=== PATIENT | male | born 1940 | race Caucasian/White ===

== ENCOUNTER → 2017-08-04 | Outpatient (CLI) | payer MEDICARE ==
[~2017-08-04] MED LIST: AMLO10TA2 PO; BYST10TA2 PO; FINA5TAB2 PO; PERC5TAB12 PO; SOMA250T PO; TAMS5CAP PO
[2017-08-04 11:30] LABS: HEMOGLOBIN 15.7 GM/DL (13.0-17.0); MEAN CELL VOLUME 96.8 FL (80.0-100.0); MEAN CORPUSCULAR HEMOGLOBIN 33.1 PG (27.0-34.0); MEAN CORPUSCULAR HGB CONC 34.1 % (32.0-36.0); MEAN PLATELET VOLUME 7.9 FL (7.0-11.0); PLATELET COUNT 242 TH/MM3 (150-450); RED BLOOD COUNT 4.75 MIL/MM3 (4.50-5.90); RED CELL DISTRIBUTION WIDTH 13.3 % (11.6-17.2); WHITE BLOOD COUNT 8.7 TH/MM3 (4.0-11.0)
[2017-08-04 11:38] LABS: PROTHROMBIN TIME - PATIENT 10.5 SEC (9.8-11.6)
[2017-08-04 11:50] LABS: BICARBONATE 29.3 MEQ/L (21.0-32.0); CALCIUM 9.1 MG/DL (8.5-10.1); CREATININE 1.05 MG/DL (0.60-1.30)
--- NOTE | 2017-08-04 11:56 | RADRPT ---
EXAM DATE: 08/04/2017 11:48 AM EDT AGE/SEX: 76 years / Male INDICATIONS: Evaluate for pneumonia, pneumothorax or communicable disease. Pre op AAA repair. CLINICAL DATA: This is the patient's initial encounter. Patient reports that signs and symptoms have been present for 1 day and indicates a pain score of 0/10. MEDICAL/SURGICAL HISTORY: . Smoker None. COMPARISON: No prior exams available for comparison. FINDINGS: PA and lateral views of the chest demonstrate the lungs to be symmetrically aerated without evidence of mass, infiltrate or effusion. There is hyperaeration bilaterally. The cardiomediastinal contours a re unremarkable. Osseous structures are intact. Multiple old healed right-sided rib fractures. No significant changes compared to the prior study. CONCLUSION: No acute intrathoracic disease. Stable examination. Electronically signed by: Cole Tellez MD 08/04/2017 11:54 AM EDT
--- NOTE | 2017-08-05 14:07 | EKG ---
Date Performed: 08/04/2017 Time Performed: 11:12:48 PTAGE: 76 years EKG: Sinus rhythm WITH FIRST DEGREE AV BLOCK RIGHT BUNDLE BRANCH BLOCK ABNORMAL ECG NO PREVIOUS TRACING DOCTOR: Denis Jacobo Interpretating Date/Time 08/05/2017 14:06:58
== END ==
LOC: CPRE 10:51
PROVIDERS: ATTEND Surgery
DX: Z01.812 Encounter for preprocedural laboratory examination (principal); Z01.810 Encounter for preprocedural cardiovascular examination; Z01.811 Encounter for preprocedural respiratory examination; I71.4 Abdominal aortic aneurysm, without rupture
CPT/HCPCS: 36415; 71046; 80048; 85027; 85610; 86850; 86900; 86901; 93005

== ENCOUNTER 2017-08-06 08:03 | Inpatient (IN) | payer MEDICARE ==
[~2017-08-06] VITALS: Ht 182.9 cm; Wt 84.5 kg
[2017-08-06] VITALS (16 sets, daily range): BP systolic 135–164; BP diastolic 63–77; PULSE 55–77; RESP 18–20; TEMP 97.8–98.4; O2SAT 92–99
[~2017-08-06 08:03] MED LIST changes: -AMLO10TA2 PO; -FINA5TAB2 PO; -PERC5TAB12 PO; -SOMA250T PO; -TAMS5CAP PO
[2017-08-06] MEDS ORDERED: CHLORHEXIDINE GLUCONATE 2 % 1 PACK (2 CLOTHS) TOPICAL PRN (08:45)
[2017-08-06] MEDS ORDERED: LACTATED RINGER'S 1000 ML IV PRN (08:45)
[2017-08-06] MEDS ORDERED: POVIDONE IODINE 5% (ANTISEPSIS KIT) 4 APPLICATIONS EACH NARE PRN (08:45)
[2017-08-06] MEDS ORDERED: SODIUM CHLORID 0.9% 500 ML IV PRN (08:45)
[2017-08-06] MEDS ORDERED: METOPROLOL TARTRATE 25 MG TAB PO PRN (08:45)
[2017-08-06] MEDS ORDERED: AMLO10TA2 PO (08:53)
[2017-08-06] MEDS ORDERED: SOMA250T PO (08:53)
[2017-08-06] MEDS ORDERED: TAMS5CAP PO (08:53)
[2017-08-06] MEDS ORDERED: FINA5TAB2 PO (08:53)
[2017-08-06] MEDS ORDERED: LIDOCAINE HCL 1% PF 5 ML SYRINGE OTHER ONE (10:19)
[2017-08-06] MEDS ORDERED: IOHEXOL 350 MG/ML 100 ML BTL (for RAD DIAG) IVCONTRAST ONE (10:19)
[2017-08-06] MEDS ORDERED: NEOSTIGMINE 5 MG/5 ML SYRINGE IV PUSH ONE (10:19)
[2017-08-06] MEDS ORDERED: ROCURONIUM INJ 50 MG/5 ML SYRINGE IV PUSH ONE (10:19)
[2017-08-06] MEDS ORDERED: GLYCOPYRROLATE 1 MG/5 ML SYRINGE IV PUSH ONE (10:19)
[2017-08-06] MEDS ORDERED: ONDANSETRON HCL 4 MG/2 ML VIAL IV PUSH ONE (10:19)
[2017-08-06] MEDS ORDERED: NORMOSOL R INJ 1,000 ML IV ONE (10:19)
[2017-08-06] MEDS ORDERED: DEXAMETHASONE SOD PHOS 4 MG/ML VIAL IV ONE (10:19)
[2017-08-06] MEDS ORDERED: PHENYLEPH/NS 1000 MCG/10 ML SYR IV ONE (10:19)
[2017-08-06] MEDS ORDERED: ePHEDrine/NS 25 MG/5 ML SYRINGE IV ONE (10:19)
[2017-08-06] MEDS ORDERED: SODIUM CHLORIDE 0.9% 20 ML VIAL IV ONE (10:19)
[2017-08-06] MEDS ORDERED: SODIUM CHLORID 0.9% 500 ML INJ 500 ML IV ONE (10:19)
[2017-08-06] MEDS ORDERED: PROPOFOL 200 MG/20 ML AMP IV ONE (10:19)
--- NOTE | 2017-08-06 10:32 | HHI.HP ---
History of Present Illness Chief Complaint: AAA History of Present Illness 76 yo male with AAA, asymptomatic Past/Family/Social History Past Medical History AAA HTN BPH constipation Past Surgical History appy Social History works on motorcycles Family History [place] Home Medications Reported Medications Carisoprodol (Soma) 250 Mg Tab, 250 MG PO QID Y for PAIN, TAB 0 Refills 08/06/17 Tamsulosin (Flomax) 0.4 Mg Cap, 0.4 MG PO HS for Manage Prostate Problems, #30 CAP 0 Refills 08/06/17 Finasteride (Finasteride) 5 Mg Tab, 5 MG PO DAILY for Manage Prostate Problems, #30 TAB 0 Refills Do not crush. 08/06/17 Amlodipine (Amlodipine) 10 Mg Tab, 10 MG PO DAILY for Blood Pressure Management , #30 TAB 0 Refills 08/06/17 Nebivolol (Bystolic) 10 Mg Tab, 10 MG PO DAILY for Blood Pressure Management, # 30 TAB 0 Refills 08/04/17 Coded Allergies: Sulfa (Sulfonamide Antibiotics) (Verified Allergy, Severe, Rash, 08/06/17) Review of Systems Constitutional: DENIES: Diaphoretic episodes, Fatigue, Fever, Weight gain, Weight loss, Chills, Dizziness, Change in appetite, Night Sweats Cardiovascular: DENIES: Chest pain, Palpitations, Syncope, Dyspnea on Exertion , PND, Lower Extremity Edema, Orthopnea, Claudication Physical Exam Vitals/I&O Date Time Temp Pulse Resp B/P (MAP) Pulse Ox O2 Delivery O2 Flow Rate FiO2 08/06/17 08:45 98.4 67 20 161/73 (102) 96 Neuro: alert, oriented, no distress HEENT: anicteric sclera Neck: no JVD Heart: reg rate, no M Lungs: clear B Vascular: palpable pedal pulses Hct 46 plt 242 INR 1.0 cr 1.0 CTA Reviewed Caprini VTE Risk Assessment Caprini VTE Risk Assessment: No/Low Risk (score <= 1) Caprini Risk Assessment Model Point Value = 1 Point Value = 2 Point Value = 3 Point Value = 5 Age 41-60 Minor surgery BMI > 25 kg/m2 Swollen legs Varicose veins or History of unexplained or recurrent spontaneous Oral contraceptives or hormone replacement Sepsis (< 1 month) Serious lung disease, including pneumonia (< 1 month) Abnormal pulmonary function Acute myocardial infarction Congestive heart failure (< 1 month) History of inflammatory bowel disease Medical patient at bed rest Age 61-74 Arthroscopic surgery Major open surgery (> 45 min) Laparoscopic surgery (> 45 min) Malignancy Confined to bed (> 72 hours) Immobilizing plaster cast Central venous access Age >= 75 History of VTE Family history of VTE Factor V Leiden Prothrombin [id number] Lupus anticoagulant Anticardiolipin antibodies Elevated serum homocysteine Heparin-induced thrombocytopenia Other congenital or acquired thrombophilia Stroke (< 1 month) Elective arthroplasty Hip, pelvis, or leg fracture Acute spinal cord injury (< 1 month) Prophylaxis Regimen Total Risk Factor Score Risk Level Prophylaxis Regimen 0-1 Low Early ambulation 2 Moderate Order ONE of the following: *Sequential Compression Device (SCD) *Heparin 5000 units SQ BID 3-4 Higher Order ONE of the following medications: *Heparin 5000 units SQ TID *Enoxaparin/Lovenox 40 mg SQ daily (WT < 150 kg, CrCl > 30 mL/min) *Enoxaparin/Lovenox 30 mg SQ daily (WT < 150 kg, CrCl > 10-29 mL/min) *Enoxaparin/Lovenox 30 mg SQ BID (WT < 150 kg, CrCl > 30 mL/min) AND/OR *Sequential Compression Device (SCD) 5 or more Highest Order ONE of the following medications: *Heparin 5000 units SQ TID (Preferred with Epidurals) *Enoxaparin/Lovenox 40 mg SQ daily (WT < 150 kg, CrCl > 30 mL/min) *Enoxaparin/Lovenox 30 mg SQ daily (WT < 150 kg, CrCl > 10-29 mL/min) *Enoxaparin/Lovenox 30 mg SQ BID (WT < 150 kg, CrCl > 30 mL/min) AND *Sequential Compression Device (SCD) Assessment and Plan Plan EVAR today Discharge Planning likely home tomorrow (POD#1) "Mahi" [phone] Leodan Hodges MD Aug 06, 2017 10:32
[2017-08-06] MEDS ORDERED: PROTAMINE SULFATE 50 MG/5 ML VIAL ONE ×2 (10:51→12:40)
[2017-08-06] MEDS ORDERED: HEPARIN SODIUM - IV 10,000 UNITS/10 ML VIAL ONE (10:52)
[2017-08-06] MEDS ORDERED: ceFAZolin 2 GM PREMIX 50 ML ONE (10:52)
[2017-08-06] MEDS ORDERED: HEPARIN-NS/PF INJ 500 ML ONE ×2 (11:04→12:31)
[2017-08-06] MEDS ORDERED: IOHEXOL 300 INJ 50 ML IV ONE (11:50)
[2017-08-06] MEDS ORDERED: BISACODYL 10 MG SUPP RECTAL PRN (13:00)
[2017-08-06] MEDS ORDERED: LACTULOSE SYRUP 20 GM/30 ML CUP PO PRN (13:00)
[2017-08-06] MEDS ORDERED: HYDROmorphone HCL 2 MG TAB PO PRN (13:00)
[2017-08-06] MEDS ORDERED: SENNOSIDES 8.6 MG TAB PO PRN (13:00)
[2017-08-06] MEDS ORDERED: MAGNESIUM HYDROXIDE SUSP 30 ML CUP PO PRN (13:00)
[2017-08-06] MEDS ORDERED: DO NOT ADM ANY ANTICOAGULANT DRUGS PRN (13:09)
[2017-08-06] MEDS ORDERED: MIDAZOLAM HCL 2 MG/2 ML VIAL ONE (13:15)
[2017-08-06] MEDS ORDERED: NICOTINE 14 MG/24 HR PATCH TOPICAL SCH (18:00)
[2017-08-06] MEDS ORDERED: REMOVE OLD NICOTINE PATCH T-DERMAL SCH (18:00)
[2017-08-06] MEDS ORDERED: diphenhydrAMINE HCL 25 MG CAP PO PRN (20:30)
[2017-08-06] MEDS: FAMOTIDINE 20 MG TAB PO SCH (20:51)
[2017-08-06] MEDS: DOCUSATE SODIUM 50 MG/SENNA 8.6 MG TAB PO SCH (20:53)
[2017-08-06] MEDS ORDERED: ATORVASTATIN 40 MG TAB PO SCH (21:00)
[2017-08-06] MEDS ORDERED: TAMSULOSIN HCL 0.4 MG CAP PO SCH (21:00)
[2017-08-07] VITALS (11 sets, daily range): BP systolic 146–165; BP diastolic 67–74; PULSE 68–82; RESP 18–19; TEMP 98.1–98.4; O2SAT 88–92
[2017-08-07 04:40] LABS: HEMATOCRIT 41.1 % (39.0-51.0); MEAN CELL VOLUME 96.4 FL (80.0-100.0); MEAN CORPUSCULAR HEMOGLOBIN 32.8 PG (27.0-34.0); MEAN PLATELET VOLUME 7.9 FL (7.0-11.0); PLATELET COUNT 192 TH/MM3 (150-450); RED BLOOD COUNT 4.26 MIL/MM3 (4.50-5.90); RED CELL DISTRIBUTION WIDTH 13.4 % (11.6-17.2); WHITE BLOOD COUNT 16.5 TH/MM3 (4.0-11.0)
[2017-08-07 05:14] LABS: BICARBONATE 26.6 MEQ/L (21.0-32.0); CALCIUM 8.2 MG/DL (8.5-10.1); CREATININE 0.92 MG/DL (0.60-1.30)
--- NOTE | 2017-08-07 06:27 | MP ---
cc: Leodan Hodges MD DATE OF OPERATION: 08/06/2017 PREOPERATIVE DIAGNOSIS: Abdominal aortic aneurysm. POSTOPERATIVE DIAGNOSIS: Abdominal aortic aneurysm. PROCEDURE: 1. Endovascular exclusion of abdominal aortic aneurysm using a bifurcated device. 2. Right common femoral artery Perclose for a 22 Norwegian sheath. 3. Left common femoral artery Perclose for a 16-Norwegian sheath. 4. Left external iliac artery angioplasty with a 8 mm balloon. SURGEON: Leodan Hodges MD CHANGE ATTENDANT SURGEON: None. ANESTHESIA: General. INDICATIONS FOR PROCEDURE: Mr. Hernandez is a 76-year-old gentleman with an abdominal aortic aneurysm 5.5 cm. He was taken to the operating room for elective repair. DESCRIPTION OF PROCEDURE: Informed consent was obtained from the patient. He was taken to the operating room and placed supine on the operating table. Appropriate timeout was taken to ensure the patient's identify, operative site and planned procedure. 2 g of Ancef was initiated prior to the skin incision and will be discontinued after a single preoperative dose. Everyone in the room agreed with timeout and we proceeded. He was prepped from his nipples to his knees. A 21-gauge micropuncture needle was used to access both common femoral arteries. This was exchanged using Seldinger for the micropuncture sheaths through a 0.035 STORQ wire was introduced and the micropuncture sheath was exchanged for a 5-Norwegian sheath, which was used to dilate the skin, subcutaneous tract and arteriotomy. Two Perclose ProGlide sutures were inserted in both groins and tagged but not tied down. These will be used later. On the right hand side, an 8-Norwegian 10 cm sheath was introduced. On the left hand side, an 8-Norwegian 25 cm sheath was introduced. The patient was systemically heparinized and throughout the remainder of the case ACT was kept greater than 250. Through the right hand side, the STORQ wire was advanced to the proximal descending thoracic aorta and exchanged for a Lunderquist wire. Over the left hand side, a marked straight flush catheter was introduced. The 8-Norwegian sheath in the right was removed. A Percy dilator was used to dilate skin and subcutaneous tract and arteriotomy and the main device, which was a Cook Zenith 32 x 96, was introduced and oriented appropriately. This went through a 22-Norwegian sheath. Interval angiogram was performed which was located at the renal arteries and device was deployed down to the contralateral gate. Angiography was performed to ascertain exactly to depict the exact location of the renal arteries and the top cap was deployed without difficulty. A Roadrunner wire was placed to the left hand side and the marker straight catheter was exchanged for a Cobra catheter. This was used to navigate into the contralateral gate and angiograms confirmed we were indeed in the contralateral gate. The Lunderquist wire was inserted and a marker Flush catheter was then placed and an angiogram was performed, which was located at the left hypogastric artery. The 8-Norwegian sheath on the left was removed, Percy dilator was used to dilate the skin and subcutaneous tract and arteriotomy in the left groin, which was inserted through a 16-Norwegian sheath was introduced and deployed without difficulty to the distal aspect of the limb was proximal to the left hypogastric artery. The remainder of the main device was deployed and the top cap was recaptured. The delivery system on the right side was removed and a marker flush catheter was then introduced and an angiogram was performed, which located the right hypogastric artery and the ipsilateral limb was then inserted and deployed through the main 22-Norwegian sheath. A Coda balloon was used to balloon the proximal and distal ends of the graft, as well as all junctions and a completion angiogram was obtained. This showed there was a slight narrowing of the external iliac artery on the left and as such an 8 x 40 balloon was used to angioplasty the proximal left external iliac artery and the completion angiogram showed excellent result without recoil extravasation. The wire, catheter and sheath were removed and the Perclose were tied down. Hemostasis was achieved in the groins and there were Doppler signals in the feet. The heparin reversed with protamine. The patient was then extubated and transported to recovery room in stable condition. MD SHAHRIAR Reed/MICHAEL , 05:08 AM , 06:25 AM
--- NOTE | 2017-08-07 07:42 | PD.VS.PN ---
Subjective POD #: 1 Procedure(s): EVAR and L EIA NEWCOMER HOSTESS Subjective/Hospital Course Looks great, told po pain controlled has already ambulated Objective Vitals/I&O Date Time Temp Pulse Resp B/P (MAP) Pulse Ox O2 Delivery O2 Flow Rate FiO2 08/07/17 06:41 80 08/07/17 05:40 78 08/07/17 04:42 75 08/07/17 03:50 98.4 75 19 146/67 (93) 88 08/07/17 03:35 72 08/07/17 02:16 72 08/07/17 01:22 74 08/07/17 00:00 68 08/06/17 23:50 98.2 77 19 135/77 (96) 98 08/06/17 23:00 69 08/06/17 22:00 70 08/06/17 21:00 66 08/06/17 20:00 66 08/06/17 19:40 92 08/06/17 19:40 98.4 70 20 138/64 (88) 92 08/06/17 19:00 66 08/06/17 18:07 65 08/06/17 15:45 60 20 142/63 (89) 92 08/06/17 15:30 144/65 (91) 08/06/17 15:30 59 20 144/ 92 08/06/17 15:15 61 20 146/64 (91) 93 08/06/17 15:00 58 08/06/17 15:00 57 20 150/67 (94) 94 08/06/17 14:45 59 18 164/67 (99) 93 08/06/17 14:30 59 18 157/72 (100) 94 08/06/17 14:15 55 20 149/67 (94) 99 08/06/17 14:00 95 Nasal Cannula 2.00 08/06/17 14:00 97.8 59 18 154/70 (98) 95 08/06/17 13:50 63 14 137/65 (89) 97 Nasal Cannula 2 08/06/17 13:30 63 14 134/61 (85) 97 Nasal Cannula 2 08/06/17 13:15 65 14 129/61 (83) 96 Nasal Cannula 2 08/06/17 13:07 97.5 65 14 130/61 (84) 96 Nasal Cannula 2 08/06/17 08:45 98.4 67 20 161/73 (102) 96 08/07/17 08/07/17 08/07/17 07:00 15:00 23:00 Intake Total 480 ml Output Total 550 ml Balance -70 ml Exam: sitting in chair, no distress groins soft, no ecchymoses Pulses: feet warm Laboratory Laboratory Tests Test 08/07/17 04:15 White Blood Count 16.5 Red Blood Count 4.26 Hemoglobin 14.0 Hematocrit 41.1 Mean Corpuscular Volume 96.4 Mean Corpuscular Hemoglobin 32.8 Mean Corpuscular Hemoglobin Concent 34.0 Red Cell Distribution Width 13.4 Platelet Count 192 Mean Platelet Volume 7.9 Blood Urea Nitrogen 17 Creatinine 0.92 Random Glucose 116 Calcium Level 8.2 Sodium Level 140 Potassium Level 4.0 Chloride Level 107 Carbon Dioxide Level 26.6 Anion Gap 6 Estimat Glomerular Filtration Rate 80 Assessment and Plan Plan POD#1 s/p EVAR Looks great and ready for discharge Discharge Planning today f/u 1m with CTA A/P "Mahi" [phone] Leodan Hodges MD Aug 07, 2017 07:42
[2017-08-07] MEDS ORDERED: PERC5TAB12 PO (08:08)
--- NOTE | 2017-08-07 08:24 | PD.VS.DC ---
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 Findings Pt sitting in chair alert in no distress groins soft w/o no ecchymoses Pulses: feet warm Laboratory Tests Test 08/07/17 04:15 White Blood Count 16.5 TH/MM3 (4.0-11.0) Red Blood Count 4.26 MIL/MM3 (4.50-5.90) Random Glucose 116 MG/DL (74-106) Calcium Level 8.2 MG/DL (8.5-10.1) Estimat Glomerular Filtration Rate 80 ML/MIN (>89) Hospital Course: 76 yo male with AAA, asymptomatic Pt s/p EVAR POD #: 1 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 Looks great, told po pain controlled has already ambulated Groins soft Pt w/o abdominal/back pain Pt clear for d/c Arranged out pt f/u Checked E- [facility]- Prescribed 3 day supply of post operative pain medication Allergies Coded Allergies Type Severity Reaction Last Updated Verified Sulfa (Sulfonamide Antibiotics) Allergy Severe Rash 08/06/17 Yes 08/05/17 08/05/17 08/06/17 08/06/17 08/07/17 08/07/17 06:00 18:00 06:00 18:00 06:00 18:00 Intake Total 2000 ml 480 ml Output Total 1275 ml 550 ml Balance 725 ml -70 ml Intake Oral 480 ml Other 2000 ml Output Urine Total 1150 ml 550 ml Estimated Blood Loss 125 ml Laboratory Tests Test 08/07/17 04:15 White Blood Count 16.5 TH/MM3 Red Blood Count 4.26 MIL/MM3 Hemoglobin 14.0 GM/DL Hematocrit 41.1 % Mean Corpuscular Volume 96.4 FL Mean Corpuscular Hemoglobin 32.8 PG Mean Corpuscular Hemoglobin Concent 34.0 % Red Cell Distribution Width 13.4 % Platelet Count 192 TH/MM3 Mean Platelet Volume 7.9 FL Blood Urea Nitrogen 17 MG/DL Creatinine 0.92 MG/DL Random Glucose 116 MG/DL Calcium Level 8.2 MG/DL Sodium Level 140 MEQ/L Potassium Level 4.0 MEQ/L Chloride Level 107 MEQ/L Carbon Dioxide Level 26.6 MEQ/L Anion Gap 6 MEQ/L Estimat Glomerular Filtration Rate 80 ML/MIN Orders Procedure Category Date Status Time Lactated Ringer's MED 08/06/17 In Process 1000 Ml Inj (Lr 1000 M 08:45 Sodium Chlorid 0.9% MED 08/06/17 In Process 500 Ml Inj (Ns 500 M 08:45 Metoprolol Tartrate MED 08/06/17 In Process (Lopressor) 08:45 Povidone Iod 5% MED 08/06/17 In Process Antisepsis Kit 08:45 Chlorhexidine 2% MED 08/06/17 In Process Cloth (Chlorhexidine 08:45 Protamine Sulfate Inj MED 08/06/17 Complete (Protamine Sulfate 10:51 Heparin Inj (Heparin MED 08/06/17 Complete Inj) 10:52 Cefazolin 2 Gm Premix MED 08/06/17 Complete (Ancef 2 Gm Premix 10:52 Heparin-Ns/Pf Inj MED 08/06/17 Complete (Heparin-Ns/Pf Inj) 11:04 Endovascular Cath CATH 08/06/17 Logged Urinary Catheter MILLI 08/06/17 In Process Management 11:15 Iohexol 300 Inj MED 08/06/17 Complete (Omnipaque 300 Inj) 11:50 Heparin-Ns/Pf Inj MED 08/06/17 Complete (Heparin-Ns/Pf Inj) 12:31 Protamine Sulfate Inj MED 08/06/17 Complete (Protamine Sulfate 12:40 Admit To Inpatient ADMITTING 08/06/17 Transmitted Code Status CODE 08/06/17 Transmitted 12:59 Vital Signs (Adult) MILLI 08/06/17 In Process 12:59 Tobacco Drier Operator / MILLI 08/06/17 In Process Telemetry 12:59 Activity Oob Ad Leyla MILLI 08/07/17 In Process 08:00 Activity Bed Rest MILLI 08/06/17 In Process 12:59 Notify Parameters MILLI 08/06/17 In Process 12:59 Precautions MILLI 08/06/17 In Process 12:59 Diet Heart Healthy DIET 08/06/17 Transmitted Lunch Basic Metabolic Panel LAB 08/07/17 Complete (Bmp) 06:00 Cbc No Diff, Includes LAB 08/07/17 Complete Plts 06:00 Aspirin Chew (Aspirin MED 08/07/17 In Process Chew) 09:00 Famotidine (Pepcid) MED 08/06/17 In Process 21:00 Atorvastatin (Lipitor) MED 08/06/17 In Process 21:00 Oxycodone (Roxicodone) MED 08/06/17 In Process 13:00 Hydromorphone MED 08/06/17 In Process (Dilaudid) 13:00 Scd Bilateral/Knee MILLI 08/06/17 In Process High 12:59 Docusate Sodium-Senna MED 08/06/17 In Process (Anne-Colace) 21:00 Magnesium Hydroxide MED 08/06/17 In Process Liq (Milk Of Magnesi 13:00 Sennosides (Senokot) MED 08/06/17 In Process 13:00 Bisacodyl Supp MED 08/06/17 In Process (Dulcolax Supp) 13:00 Lactulose Liq MED 08/06/17 In Process (Lactulose Liq) 13:00 Inpatient ADMITTING 08/06/17 Transmitted Certification Remove Urinary MILLI 08/07/17 In Process Catheter 06:00 Amlodipine (Norvasc) MED 08/07/17 In Process 09:00 Finasteride (Proscar) MED 08/07/17 In Process 09:00 Nebivolol (Bystolic) MED 08/07/17 In Process 09:00 Tamsulosin (Flomax) MED 08/06/17 In Process 21:00 Patient Own Medication MED 08/06/17 In Process 13:00 Am Admit [facility] Op [facility] 08/06/17 Complete Fentanyl Inj MED 08/06/17 In Process (Fentanyl Inj) 13:15 Midazolam Inj (Versed MED 08/06/17 Complete Inj) 13:15 Enoxaparin Inj MED 08/07/17 In Process (Lovenox Inj) 12:00 Nursing Information MED 08/06/17 In Process (Misc Nursing Inform 13:09 Class [facility] Complete MIN General/Pacu [facility] 08/06/17 Complete Post Anesthesia Oxygen [facility] 08/06/17 Complete Pad, K-Thermia, Med SPD 08/06/17 Logged 13x18 Ea 17:47 Nicotine 14 Mg MED 08/06/17 In Process Patch.24 Hr (Habitrol 18:00 Remove Old Patch MED 08/06/17 In Process 18:00 Diphenhydramine MED 08/06/17 In Process (Benadryl) 20:30 K Thermia MILLI 08/06/17 In Process 20:30 Pad, K-Thermia, Med SPD 08/06/17 Logged 13x18 Ea 20:30 Equip, K-Thermia Use [facility] 08/06/17 Logged OF 21:01 Attending Discharge DISCHARGE 08/07/17 Transmitted Order Vital Signs Date Time Temp Pulse Resp B/P (MAP) Pulse Ox O2 Delivery O2 Flow Rate FiO2 08/07/17 06:41 80 08/07/17 05:40 78 08/07/17 04:42 75 08/07/17 03:50 98.4 75 19 146/67 (93) 88 08/07/17 03:35 72 08/07/17 02:16 72 08/07/17 01:22 74 08/07/17 00:00 68 08/06/17 23:50 98.2 77 19 135/77 (96) 98 08/06/17 23:00 69 08/06/17 22:00 70 08/06/17 21:00 66 08/06/17 20:00 66 08/06/17 19:40 92 08/06/17 19:40 98.4 70 20 138/64 (88) 92 08/06/17 19:00 66 08/06/17 18:07 65 08/06/17 15:45 60 20 142/63 (89) 92 08/06/17 15:30 144/65 (91) 08/06/17 15:30 59 20 144/ 92 08/06/17 15:15 61 20 146/64 (91) 93 08/06/17 15:00 58 08/06/17 15:00 57 20 150/67 (94) 94 08/06/17 14:45 59 18 164/67 (99) 93 08/06/17 14:30 59 18 157/72 (100) 94 08/06/17 14:15 55 20 149/67 (94) 99 08/06/17 14:00 95 Nasal Cannula 2.00 08/06/17 14:00 97.8 59 18 154/70 (98) 95 08/06/17 13:50 63 14 137/65 (89) 97 Nasal Cannula 2 08/06/17 13:30 63 14 134/61 (85) 97 Nasal Cannula 2 08/06/17 13:15 65 14 129/61 (83) 96 Nasal Cannula 2 08/06/17 13:07 97.5 65 14 130/61 (84) 96 Nasal Cannula 2 08/06/17 08:45 98.4 67 20 161/73 (102) 96 Discharge Condition: Good Discharge Disposition: Discharge Home Discharge Instructions: DIET You may resume your heart healthy diet ACTIVITY Activity as tolerated You may shower then pat dry incision sites No tub baths or swimming until your incision is fully healed WOUND CARE Leave open to air Call the office ([phone]) to report any new onset increased redness, drainage, swelling or pain Do not apply any creams or ointments to your incisions as it may loosen the surgical glue MEDICATIONS You may resume your daily home medications You were prescribed a narcotic pain medication that may cause constipation- Take with an over the counter stool softener You were prescribed a narcotic pain medication that may cause drowsiness- No driving while taking this medication Any questions or concerns: Call [facility] [phone] Socorro Garcia Aug 07, 2017 08:24
[2017-08-07] MEDS: DOCUSATE SODIUM 50 MG/SENNA 8.6 MG TAB PO SCH (08:57)
[2017-08-07] MEDS: FAMOTIDINE 20 MG TAB PO SCH (08:57)
[2017-08-07] MEDS ORDERED: FINASTERIDE 5 MG TAB PO SCH (09:00)
[2017-08-07] MEDS ORDERED: NEBIVOLOL 10 MG TAB PO SCH (09:00)
[2017-08-07] MEDS ORDERED: ASPIRIN 81 MG CHEW TAB PO SCH (09:00)
[2017-08-07] MEDS ORDERED: ENOXAPARIN SODIUM 30 MG/0.3 ML SYRINGE SQ SCH (12:00)
== END 2017-08-07 10:20 | disposition home or self-care (01) | DRG 269 ==
LOC: HSDI 08:03 → EDUNIT# 10:00 → HCPC 14:00
PROVIDERS: ADMIT Surgery; ATTEND Surgery
PROC: 04V03D6 (ICD-10-PCS; principal; 2017-08-07)
PROC: 047J3ZZ Dilation of Left External Iliac Artery, Percutaneous Approach (ICD-10-PCS; 2017-08-07)
DX: I71.4 Abdominal aortic aneurysm, without rupture (principal); I10 Essential (primary) hypertension; N40.0 Benign prostatic hyperplasia without lower urinary tract symptoms; K59.00 Constipation, unspecified
CPT/HCPCS: 75630; 75716; 80048; 85027; C1725; C1769; C1874; J0690; J1100; J1644; J2250; J2370; J2405; J2710; J2720; J3010; J7040; J7120; Q9967